=== PATIENT | male | born 1990 ===

== ENCOUNTER 2017-10-30 09:40 | Emergency (ER) | payer OTHER ==
[2017-10-30 10:07] VITALS: BP 153/89; PULSE 76; RESP 18; TEMP 98.3; O2SAT 99
--- NOTE | 2017-10-30 10:48 | ED PDOC ---
Upper Extremity Pain/Injury Time Seen by Provider: 10/30/17 10:13 Chief Complaint (Nursing): Finger,Hand,&Wrist Chief Complaint (Provider): Finger injury History Per: Patient History/Exam Limitations: no limitations Onset/Duration Of Symptoms: Days (Sunday) Additional Complaint(s): Pt. with pain to the right ringer finger. Pt. finger got caught on his 's jacket ring and she pulled back. Pt. states his finger dislocated to the side and he pushed it back in. Was doing ok then yesterday night pt. was sleeping and suddenly hear a crack/pop in the same finger. Since then, he has more swelling and pain. Pain on bending finger. No numbness, tingles, weakness, dizziness. No injury elsewhere. Past Medical History Reviewed: Nursing Documentation, Vital Signs Vital Signs: Last Vital Signs Temp 98.3 F 10/30/17 10:03 Pulse 76 10/30/17 10:03 Resp 18 10/30/17 10:03 BP 153/89 H 10/30/17 10:03 Pulse Ox 99 10/30/17 10:03 - Medical History Other PMH: finger dislocation - Surgical History Surgical History: No Surg Hx - Family History Family History: States: Unknown Family Hx - Living Arrangements Living Arrangements: With Family - Home Medications Home Medications: Ambulatory Orders Medication Instructions Recorded Ibuprofen [Motrin] 600 mg PO TID 7 Days tab 10/30/17 - Allergies Allergies/Adverse Reactions: Allergies Allergy/AdvReac Type Severity Reaction Status Date / Time No Known Allergies Allergy Verified 10/30/17 10:03 Review of Systems Constitutional: Negative for: Weakness Cardiovascular: Negative for: Chest Pain Respiratory: Negative for: Shortness of Breath Musculoskeletal: Positive for: Hand Pain (finger). Negative for: Neck Pain, Shoulder Pain, Arm Pain Neurological: Negative for: Weakness, Numbness Physical Exam - Reviewed Nursing Documentation Reviewed: Yes Vital Signs Reviewed: Yes - Physical Exam Neck: Positive for: Normal, Painless ROM Cardiovascular/Chest: Positive for: Regular Rate, Rhythm Respiratory: Positive for: CNT, Normal Breath Sounds Pulses-Radial (R): 2+ Back: Positive for: Normal Inspection. Negative for: L CVA Tenderness, R CVA Tenderness Extremity: Positive for: Tenderness (R 4th digit (pip joint with swelling and echymosis on the medial) Limited ROM.). Negative for: Normal ROM Neurologic/Psych: Positive for: Alert, Oriented - ECG O2 Sat by Pulse Oximetry: 99 Pulse Ox Interpretation: Normal - Radiology X-Ray: Interpreted by Me, Viewed By Me, Read By Radiologist X-Ray Interpretation: Fracture - Progress ED Course And Treament: 1150: Stable. AAOx3. Spoke with Dr. Fregoso. She reviewed films on text. Wants manasa splint. States wont reduce and stay based on fracture location. Will need surgery. Fu with her 3 days. Disposition - Clinical Impression Clinical Impression: Fracture/dislocation, finger, proximal/middle phalanx - Patient ED Disposition Is Patient to be Admitted: No Counseled Patient/Family Regarding: Studies Performed, Diagnosis, Need For Followup, Rx Given - Disposition Referrals: Queenie Fregoso MD [Staff Provider] - 10/31/17 Disposition: Routine/Home Disposition Time: 11:55 Condition: STABLE Additional Instructions: See the hand surgeon without fail in 3 days. Prescriptions: Ibuprofen [Motrin] 600 mg PO TID 7 Days tab Instructions: Finger Dislocation (DC), Finger Fracture Forms: [facility] (Persian), [facility] ED School/Work Excuse
--- NOTE | 2017-10-30 11:42 | RAD ---
PROCEDURE: Right ring finger radiographs. HISTORY: pain COMPARISON: None. TECHNIQUE: AP radiograph of the right hand, as well as spot oblique and lateral images of ring finger were obtained. FINDINGS: RIGHT RING FINGER: There is a comminuted fracture/ dislocation at the base of the middle phalanx right ring finger. The fracture appears through the dorsal plate which lies in its usual position with the distal segment proximal phalanx right ring finger. The middle phalanx is dislocated in the volar direction with no additional fracture appreciable. Remainder of the right hand (as seen on the AP view) grossly unremarkable. JOINTS: Normal. SOFT TISSUES: Limited soft tissue edema is suggested at the fracture site. OTHER FINDINGS: None. IMPRESSION: A fracture/dislocation is identified at the base of the middle phalanx right ring finger with volar dislocation and dorsal plate fracture evident. Limited local soft tissue edema at fracture site. Findings were discussed with Dr. Dawson 10/30/2017 with written down and read back verification.
== END 2017-10-30 12:30 | disposition home or self-care (01) ==
LOC: H.ER 09:40
DX: S63.284A Dislocation of proximal interphalangeal joint of right ring finger, initial encounter (principal); W22.8XXA Striking against or struck by other objects, initial encounter; Y92.89 Other specified places as the place of occurrence of the external cause